=== PATIENT | female | born 1960 | race Caucasian/White ===

== ENCOUNTER 2019-05-23 09:47 | Emergency (ER) | payer MEDICARE ==
[~2019-05-23] VITALS: Ht 162.6 cm; Wt 68.2 kg
[~2019-05-23 09:47] MED LIST: CITA10TA68 PO; LORA1TAB3 PO
[2019-05-23 12:49] VITALS: BP 159/81
== END 2019-05-23 12:50 | disposition home or self-care (01) ==
LOC: EMS 09:49
DX: F41.9 Anxiety disorder, unspecified (principal); R07.89 Other chest pain; R20.0 Anesthesia of skin
CPT/HCPCS: 93005